=== PATIENT | male | born 2000 | race Caucasian/White ===

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

== ENCOUNTER 2019-05-30 08:21 | Emergency (ER) | payer SELFPAY ==
[~2019-05-30] VITALS: Wt 84.1 kg
[~2019-05-30 08:21] MED LIST: IBUP-1542 PO
[2019-05-30] MEDS ORDERED: IBUP800T48 PO (10:27)
[2019-05-30 10:57] VITALS: BP 113/72; PULSE 83; RESP 20
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
== END 2019-05-30 10:50 | disposition home or self-care (01) ==
LOC: FTE 08:21
DX: M79.641 Pain in right hand (principal)